=== PATIENT | female | born 1945 | race Caucasian/White ===

== ENCOUNTER → 2016-12-28 16:35 | Outpatient (CLI) | payer MEDICARE, OTHER ==
[2009-12-08 08:57] VITALS: BMI 27.5
== END | disposition home or self-care (01) ==
LOC: D.MAMMO 08:30
DX: R92.8 Other abnormal and inconclusive findings on diagnostic imaging of breast (principal)

== ENCOUNTER 2018-04-20 08:00 | Outpatient (CLI) | payer MEDICARE, OTHER ==
[2009-12-08 08:57] VITALS: BMI 27.5
== END 2018-04-20 23:59 | disposition home or self-care (01) ==
LOC: D.MAMMO 08:00
DX: Z12.31 Encounter for screening mammogram for malignant neoplasm of breast (principal)

== ENCOUNTER 2020-07-10 14:00 | Outpatient (CLI) | payer MEDICARE, OTHER ==
[2009-12-08 08:57] VITALS: BMI 27.5
== END 2020-07-10 15:00 | disposition home or self-care (01) ==
LOC: D.MAMMO 14:00
PROVIDERS: ATTEND Family Medicine
DX: R92.2 Inconclusive mammogram (principal)

== ENCOUNTER → 2020-07-17 09:39 | Outpatient (CLI) | payer MEDICARE, OTHER ==
[2009-12-08 08:57] VITALS: BMI 27.5
== END | disposition home or self-care (01) ==
LOC: D.US 09:39
PROVIDERS: ATTEND Family Medicine
DX: R92.8 Other abnormal and inconclusive findings on diagnostic imaging of breast (principal)